=== PATIENT | female | born 1995 | race Caucasian/White ===

== ENCOUNTER 2017-06-26 18:30 | Emergency (ER) | payer BC ==
[2017-06-26 19:52] VITALS: BP 114/57
--- NOTE | 2017-06-26 19:55 | UC ---
Bite Injury/Animal HPI - HPI Summary HPI Summary: 21 YEAR OLD FEMALE PRESENTS WITH INSECT BITE ON HER LEFT ANKLE - History of Current Complaint Chief Complaint: [place] Stated Complaint: INSECT BITE LEFT ANKLE Time Seen by Provider: 06/26/17 19:55 Hx Obtained From: Patient Hx Last Menstrual Period: 06/16/17 Severity Currently: Moderate Severity Initially: Moderate Pain Scale Used: 0-10 Numeric - 3 Onset/Duration: Sudden Onset Type of Bite: Animal - Allergies/Home Medications Allergies/Adverse Reactions: Allergies Allergy/AdvReac Type Severity Reaction Status Date / Time No Known Allergies Allergy Verified 06/26/17 19:52 Home Medications: Home Medications Control Pill 1 b PO DAILY 06/26/17 [History Confirmed 06/26/17] PMH/Surg Hx/FS Hx/Imm Hx Previously Healthy: Yes - Surgical History Surgical History: None - Social History Alcohol Use: Rare Substance Use Type: None Smoking Status (MU): Never Smoked Tobacco - Immunization History Most Recent Influenza Vaccination: no Review of Systems Constitutional: Negative Skin: Other - LEFT ANKLE INSECT BITE Eyes: Negative ENT: Negative Respiratory: Negative Cardiovascular: Negative Gastrointestinal: Negative Genitourinary: Negative Motor: Negative Neurovascular: Negative Musculoskeletal: Negative Neurological: Negative Psychological: Negative All Other Systems Reviewed And Are Negative: Yes Physical Exam Triage Information Reviewed: Yes Vital Signs: Initial Vital Signs Temp 37.0 C 06/26/17 19:49 Pulse 83 06/26/17 19:49 Resp 14 06/26/17 19:49 BP 114/57 06/26/17 19:49 Pulse Ox 99 06/26/17 19:49 Vital Signs Reviewed: Yes Eye Exam: Normal ENT Exam: Normal Dental Exam: Normal Neck exam: Normal Neck: Positive: 1 Respiratory Exam: Normal Cardiovascular Exam: Normal Abdominal Exam: Normal Musculoskeletal Exam: Normal Neurological Exam: Normal Psychological Exam: Normal Skin: Positive: Other - LEFT ANKLE INSECT BITE Bite Injury Course/Dx - Differential Dx/Diagnosis Provider Diagnoses: LEFT ANKLE INSECT BITE Discharge - Discharge Plan Condition: Stable Disposition: HOME Prescriptions: Cephalexin CAP* [Keflex CAP*] 500 mg PO TID #30 cap LoraTADine TAB(NF) [Claritin 10 MG TAB(NF)] 10 mg PO DAILY #30 tab Methylprednisolone [Medrol Dosepak 4 MG*] 4 mg PO .SEE ERIK INSTRUCTION #21 tab Triamcinolone PASTE 0.1% (NF) [Triamcinolone 0.1% PASTE *] 1 applic TOPICAL TID PRN #90 gm PRN Reason: Itching Patient Education Materials: Insect Bite or Sting (ED) Referrals: No Primary Care Phys,NOPCP [Primary Care Provider] -
== END 2017-06-26 20:12 | disposition home or self-care (01) ==
LOC: UCCORT 18:30
DX: S90.562A Insect bite (nonvenomous), left ankle, initial encounter (principal); W57.XXXA Bitten or stung by nonvenomous insect and other nonvenomous arthropods, initial encounter; Y93.9 Activity, unspecified; Y92.9 Unspecified place or not applicable
CPT/HCPCS: 99202; G0463